=== PATIENT | female | born 1995 | race Caucasian/White ===

== ENCOUNTER 2021-06-21 15:21 | Outpatient (REF) | payer OTHER, SELFPAY ==
[2021-06-22 08:56] LABS: Monotest Negative (Negative)
[2021-06-24 01:56] LABS: EBV-VCA IgM Ab <36.00 U/mL
== END 2021-06-21 15:22 | disposition home or self-care (01) ==
LOC: HO.MANLDS 15:21
PROVIDERS: PCP Physician Assistant; Visit Provider Physician Assistant
DX: R06.00 Dyspnea, unspecified (principal)
CPT/HCPCS: 36415; 86308; 86664; 86665

== ENCOUNTER → 2024-05-08 09:17 | Outpatient (BNVA) | payer OTHER, SELFPAY | PROVIDERS: PCP Physician Assistant; Visit Provider Physician Assistant | DX: Z77.21 Contact with and (suspected) exposure to potentially hazardous body fluids (principal) | CPT/HCPCS: 84450; 84460; 84702; 85025; 86706; 86803; 87389; 90715; 99204 ==

== ENCOUNTER → 2024-05-11 09:14 | Outpatient (BNVA) | payer OTHER, SELFPAY | PROVIDERS: PCP Physician Assistant; Visit Provider Registered Nurse | DX: Z77.21 Contact with and (suspected) exposure to potentially hazardous body fluids (principal) | CPT/HCPCS: 99213 ==

== ENCOUNTER → 2024-05-26 09:10 | Outpatient (BNVA) | payer OTHER, SELFPAY | PROVIDERS: PCP Physician Assistant; Visit Provider Physician Assistant Medical | DX: Z77.21 Contact with and (suspected) exposure to potentially hazardous body fluids (principal) | CPT/HCPCS: 82150; 82565; 84450; 84460; 85025; 99213 ==

== ENCOUNTER → 2024-06-08 08:27 | Outpatient (BNVA) | payer OTHER, SELFPAY | PROVIDERS: PCP Physician Assistant | DX: Z77.21 Contact with and (suspected) exposure to potentially hazardous body fluids (principal) | CPT/HCPCS: 82150; 82565; 84450; 84460; 85025 ==

== ENCOUNTER → 2024-06-19 08:27 | Outpatient (BNVA) | payer OTHER, SELFPAY | PROVIDERS: PCP Physician Assistant | DX: Z77.21 Contact with and (suspected) exposure to potentially hazardous body fluids (principal) | CPT/HCPCS: 84450; 84460; 86706; 87389; 99211 ==

== ENCOUNTER → 2024-08-07 08:47 | Outpatient (BNVA) | payer OTHER, SELFPAY | PROVIDERS: PCP Physician Assistant | DX: Z77.21 Contact with and (suspected) exposure to potentially hazardous body fluids (principal) | CPT/HCPCS: 84450; 84460; 86803; 87389; 99211 ==

== ENCOUNTER 2025-06-23 14:53 | Outpatient (AMB) | payer OTHER, SELFPAY ==
[2025-06-23 14:59] VITALS: BP 118/82; PULSE 69; O2SAT 99
--- NOTE | 2025-06-23 14:59 | A.OFFPC_ITS ---
Vital Signs 06/23/25 14:59 Height 5 ft 6.5 in Weight 189 lb BMI 30.0 BP 118/82 Blood Pressure Location Lt brachial Position Sitting Pulse 69 Pulse Source Pulse Oximeter Pulse Oximetry (%) 99 Oxygen Delivery Method Room Air Intake Visit Reasons: establish care Insights Manager Required: No Accompanied by: Self / Same As Patient Is last menstrual period known: Yes Last menstrual period: 06/13/25 Patient : No Allergies No Known Allergies Allergy (Verified 06/23/25 15:21) Medication List - Last Reconciled 06/23/25 by Barb George PA-C ascorbate calcium (vitamin C) 500 mg PO DAILY duloxetine 60 mg PO DAILY ferrous gluconate 648 mg PO BID lorazepam 0.5 mg PO DAILY PRN methylphenidate HCl ER (Concerta) 36 mg PO DAILY multivitamin (Daily Multi-Vitamin tablet) 1 tab PO DAILY omeprazole 20 mg PO DAILY Tobacco use date assessed: 06/23/25 Dental Screening Dental Screen Date: 06/23/25 Did you have a dental visit in the last 12 months?: Yes Did you have a dental problem in the last 6 months where you did not have access to dental care?: No Was dental information given to patient?: Patient has dentist HPI establish care HPI Details 30 year old female coming to the office for the first time. Presenting for management of ADHD, depression, and anxiety, as well as follow-up on iron deficiency anemia and GERD. ADHD Previously managed with Concerta 36 mg, which she has not taken for a while, resulting in worsening symptoms. Difficulty obtaining medical records from [facility], which has closed. For depression and anxiety she is on duloxetine with varying effectiveness requiring dosage adjustments. She has been working on finding a psychiatrist and therapist but has been unable to obtain 1. She has a history of iron-deficiency anemia and is currently taking iron and vitamin-C supplementation. She has history of GERD with hiatal hernia is using omeprazole with good benefit. She does experience irregular menstrual cycles which slightly improved after a beef organ supplement was implemented and she has completed a pelvic and transvaginal ultrasound in the last year. No acute concerns today. 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 vaccines: Tdap [facility] Surgical History H/O adenoidectomy History of placement of ear tubes Family History Other Diabetes 1.5, managed as type 1 Temporary high blood pressure Social History Household Members: Spouse Both parents involved: No Housing: House Are you a primary career development consultant to a significant other at home: No Do you presently have visiting nurse or other home services: No Alcohol intake: former Patient Tobacco Use Status: Never used Tobacco e-Cigarette/Vaping Use: Currently Using Substance Use Type: Marijuana service: No Current occupational status: employed Current occupation: [employer] Hearing needs: No Vision needs: No Female Reproductive History Menstrual Duration of menses: 6-7 days Date of last menstrual period: 06/13/25 control method: none Total pregnancies: 0 Questionnaire PHQ-9 Over the last 2 weeks, how often have you been bothered by any of the following problems? 1. Little interest or pleasure in doing things: nearly every day 2. Feeling down, depressed, or hopeless: nearly every day 3. Trouble falling or staying asleep, or sleeping too much: nearly every day 4. Feeling tired or having little energy: nearly every day 5. Poor appetite or overeating: nearly every day 6. Feeling bad about yourself - or that you are a failure or have let yourself or your family down: several days 7. Trouble concentrating on things, such as reading the newspaper or watching television: nearly every day 8. Moving or speaking so slowly that other people could have noticed. Or the opposite - being so fidgety or restless that you have been moving around a lot more than usual: nearly every day 9. Thoughts that you would be better off or of hurting yourself in some way: not at all Total score: 22 Depression Screening Interpretation: Positive Depression Screening Follow-up: Existing condition and In treatment Depression Screening Done: Yes 92702 - PHQ-9 Billing: Yes Source: Developed by Drs. Markell Chang, Diana Solano, Isidro Dockery and colleagues, with an educational hanna from [employer]. Thrive Questionnaire Date Thrive assessed: 06/23/25 I am a: Patient What is your living situation today?: I have a steady place to live Within the past 12 months, did the food you bought not last and you didn't have the money to get more?: I choose not to answer this question Within the past 12 months, did you worry whether your food would run out before you got money to buy more?: I choose not to answer this question Do you have trouble paying for medicines?: I choose not to answer this question Do you have trouble getting transportation to medical appointments?: I choose not to answer this question Do you have trouble paying your heating and electricity bill?: I choose not to answer this question Do you have trouble taking care of your child, family member or friend?: I choose not to answer this question Do you have trouble with day-to-day activities such as bathing, preparing meals, shopping, managing finances, etc.?: I choose not to answer this question Are you currently unemployed and looking for a job?: No Are you interested in more education?: I choose not to answer this question Please select the resources that you would like help with: None Currently or been in a relationship where the following occur: I choose not to answer THRIVE Score: 0 AUDIT C Alcohol Use Questionnaire (AUDIT-C) 1. How often do you have a drink containing alcohol?: 2-4 times a month 2. How many drinks containing alcohol do you have on a typical day when you are drinking?: 1 or 2 3. How often do you have six or more drinks on one occasion?: Less than monthly Total Score: 3 Score Reviewed/Action Taken: Yes CASTILLO-7 AMB Questionnaire CASTILLO-7 Date CASTILLO - 7 assessed: 06/23/25 Feeling nervous, anxious, or on edge: 3 = Nearly every day Not being able to stop or control worryin = Not at all Worrying too much about different things: 1 = Several days Trouble relaxin = More than half the days Being so restless that it is hard to sit still: 1 = Several days Becoming easily annoyed or irritable: 1 = Several days Feeling afraid as if something awful might happen: 0 = Not at all Total CASTILLO-7 score (0-4 normal; 5-9 mild; 10-14 moderate; 15-21 severe): 8 Source: Developed by Drs. Markell Chang, Isidro Ricardoke and colleagues, with an educational hanna from [employer]. CASTILLO-7 Assessment Billing CASTILLO-7 Assessment Tool: CASTILLO-7 Assessment 43115 Review of Systems Const Denies body aches, Denies chills, Denies fever(s), Denies headache(s) and Denies poor appetite Eyes Reports no additional complaints ENT Denies dysphagia, Denies dizziness, Denies headache(s) and Denies odynophagia Card Denies chest pain and Denies dyspnea Resp Denies dyspnea GI Denies dysphagia, Denies nausea, Denies odynophagia and Denies vomiting Reports as per HPI Musc Reports no additional complaints and Denies abnormal gait Skin/Breast Reports system reviewed and no additional complaints, except as documented Neuro Denies abnormal gait, Denies dizziness and Denies headache(s) Psych Reports no additional complaints Physical exam (Primary Care) Vital Signs: Last Vital Signs Pulse 69 06/23/25 14:59 BP 118/82 06/23/25 14:59 Pulse Ox 99 06/23/25 14:59 Oxygen Delivery Method Room Air 06/23/25 14:59 BMI result Body Mass Index 30.0 Tobacco/Smoking Status: Tobacco use Status Tobacco use date assessed 06/23/25 06/23/25 15:17 Patient Tobacco Use Status Never used Tobacco 06/23/25 15:17 e-Cigarette/Vaping Use Currently Using 06/23/25 15:17 PHQ-9: PHQ-9 Score PHQ-9: Total score 22 06/23/25 15:17 Depression Screening Interpretation: Positive Depression Screening Follow-up: Existing condition and In treatment Thrive Assessment: Date of Thrive Assessment Date Thrive assessed 06/23/25 06/23/25 15:17 Currently or been in a relationship where the following occur: I choose not to answer Const General: cooperative, healthy appearing, comfortable and no acute distress Orientation/consciousness: patient oriented x3 HENMT Head: Yes normocephalic Ears: hearing grossly normal bilaterally General nose exam: Normal external nose present Eyes General: appearance normal, both eyes and all related structures Conjunctivae: conjunctivae normal Neck Neck: Yes full ROM and Yes no lymphadenopathy Resp Effort & Inspection: normal respiratory effort Auscultation: clear to auscultation bilaterally, no crackles, no rales, no rhonchi and no wheezes Cardio Rate: regular rate Rhythm: regular rhythm Skin General skin exam: no rashes or lesions noted Neuro General: patient oriented x3 Gait exam (Neuro): Normal gait present Extrem General: Yes normal to inspection, Yes full ROM and No edema Psych Affect: normal affect Attitude: cooperative Insight: Good insight present (Psych) Judgement: Good judgement present (Psych) Coding Level of Care Code New Pt Level 4 (98756) Diagnoses Depression F32.A Anxiety F41.9 GERD (gastroesophageal reflux disease) K21.9 ADHD F90.9 Iron deficiency anemia D50.9 Hiatal hernia K44.9 Obesity (BMI 30.0-34.9) E66.811 Irregular menses N92.6 Additional Codes PHQ-9 - 45184 - PHQ-9 Billing: Yes ([id number]) CASTILLO-7 Assessment Billing - CASTILLO-7 Assessment Tool: CASTILLO-7 Assessment 19214 ([id number]) Assessment & Plan Assessment & Plan (1) Depression: Code(s): F32.A - Depression, unspecified Category: Medical Plan: Patient is currently on duloxetine which he states is more effective in conjunc tion with Concerta. Plan to restart on Concerta and reassess at that time. Referral was also placed to counseling and psychiatry (2) Anxiety: Code(s): F41.9 - Anxiety disorder, unspecified Category: Medical Plan: See above (3) GERD (gastroesophageal reflux disease): Code(s): K21.9 - Gastro-esophageal reflux disease without esophagitis Category: Medical Plan: Avoid trigger foods such as citrus, tomato products, soda, caffeine, spicy foods and other foods that may be irritating to your stomach. Avoid laying flat 3-4 hours after eating and elevate the head of the bed 30 degrees to prevent acid from moving into the esophagus. Continue on omeprazole (4) ADHD: Code(s): F90.9 - Attention-deficit hyperactivity disorder, unspecified type Category: Medical Plan: Plan to restart on Concerta I did discuss with the patient while she is on this medication she needs to follow up every 3 months at the office. (5) Iron deficiency anemia: Code(s): D50.9 - Iron deficiency anemia, unspecified Category: Medical Plan: Plan to ordered for updated blood work and continue on vitamin-C and iron supplementation at this time (6) Hiatal hernia: Code(s): K44.9 - Diaphragmatic hernia without obstruction or gangrene Category: Medical Plan: Avoid trigger foods such as citrus, tomato products, soda, caffeine, spicy foods and other foods that may be irritating to your stomach. Avoid laying flat 3-4 hours after eating and elevate the head of the bed 30 degrees to prevent acid from moving into the esophagus. (7) Obesity (BMI 30.0-34.9): Code(s): E66.811 - Obesity, class 1 Category: Medical Plan: Healthy diet and regular exercise is encouraged. (8) Irregular menses: Code(s): N92.6 - Irregular menstruation, unspecified Category: Medical Plan: Plan to obtain the results from the pelvic and transvaginal ultrasound completed less than a year ago and referral was placed to gynecology today. Plan During the visit, we discussed the management of ADHD with Eze and the continuation of duloxetine for depression and anxiety. I recommended referrals to psychiatry and gynecology for comprehensive management of mental health and menstrual irregularities. We also planned for fasting blood work to monitor iron levels and other health parameters. Dietary modifications were suggested to caroline ge GERD and weight. Follow-up is scheduled in three months to reassess the treatment plan and make necessary adjustments. This note was constructed using voice recognition software. 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 Total time spent caring for the patient today was 30 minutes. This includes time spent before the visit reviewing the chart, time spent during the visit, and time spent after the visit and documentation. Patient was informed and verbally consented to the use of an ambient scribe for clinic note documentation during this visit.
--- OUTSIDE RECORDS SUMMARY | 2025-06-23 16:17 | XMS_ITS | Clinical Summary ---
Author Organization [facility] Address [address] [place] [id number] Phone Care Team Providers Care Marketing Campaign Analyst Name Role Phone Pcp, Unknown Primary Care Provider Unavailabl e Immunizations Immunization Administration Dates Next Due COVID-19 (Pre-08/19) Pfizer Vaccine, mRNA, PF ,03/04/2021 Social History Tobacco Use Types Packs/Day Years Used Date Smoking Tobacco: Never Assessed Education Answer Date Recorded Are you interested in more education? Not on melania e 02/22/2023 Are you concerned about learning? Not on file 02/22/2023 No 02/22/2023 No 02/22/2023 Digital Access Answer Date Recorded No 03/22/2023 No 03/22/2023 No 03/22/2023 Reliable internet access at home? Not on file 03/22/2023 Device with a working camera? Not on file Comments Unknown Sex and Gender Information Value Date Recorded Sex Assigned at Not on file Legal Sex Female 8:52 PM EDT Gender Identity Female 06/19/2021 4:14 PM EDT Sexual Orientation Not on file Plan of Treatment Health Maintenance Due Date Last Done Comments DEPRESSION SCREENING 2007 SMOKING Hx and SMOKELESS TOBACCO SCREENING 2008 HEPATITIS C SCREENING 2013 HIV ONE-TIME SCREENING (18-65 YEARS) 2013 PAP SMEAR 2016 Adult Td,Tdap Booster 05/31/2018 05/31/2008 COVID-19 VACCINE ( season) 2024 03/30/2021, 03/04/2021 HIB VACCINES Completed 10/16/1996, 12/27, 1995, Additional history exists MENINGOCOCCAL VACCINES (ACWY) Aged Out 08/25/2009, 05/31/2008 No longer eligibl e based on patient's age to complete this topic HEPATITIS A VACCINES Aged Out No long er eligible based on patient's age to complete this topic MENINGOCOCCAL VACCINES (B) Aged Out N o longer eligible based on patient's age to complete this topic PNEUMOCOCCAL VACCINES (0-49 years) Aged Out No longer eligible based on patient's age to complete this topic Medical Devices Not on file Insurance [employer] [facility] [employer] [address] [place], [place] [address] [facility] [employer] [place] [address] [address] [place] [address] [place] [address] [place] [address] [place] [address] [facility] [facility] CHOICE [facility] CHOICE Care Teams Marketing Campaign Analyst Relationship Specialty Start Date End Date Pcp, Unknown PCP - General 03/01/21 Additional Source Comments The information contained in this document represents components of the legal health record. It is not the complete legal health record.[facility]
--- OUTSIDE RECORDS SUMMARY | 2025-06-23 16:17 | XMS_ITS | Encounter Summary ---
Author Organization [facility] Address [address] [place] [phone] Phone Care Team Providers Care Account Services Coordinator Name Role Phone Pcp, Unknown Primary Care Provider Unavailabl e Encounter Details Date Type Department Care Team (Latest Contact Info) Description 06/19/2021 Transcribe Orders Virtual Department [address] [place] [id number] Sun Jaquez PA [address] [place] [address] [place] [address] Cough (Primary Dx); Shortness of breath; Sore throat Social History Tobacco Use Types Packs/Day Years Used Date Smoking Tobacco: Never Assessed Comments Unknown Sex and Gender Information Value Date Recorded Sex Assigned at Not on file Legal Sex Female 8:52 PM EDT Gender Identity Female 06/19/2021 4:14 PM EDT Sexual Orientation Not on file documented as of this encounter Plan of Treatment Not on file documented as of this encounter Results * COVID-19 PCR Order (06/20/2021 1:40 PM EDT) COVID Testing Status Specimen received in analyzing lab. Results should be available within 24 to 48 hrs. [facility] Symptomatic? YES [facility] Other (Nasal swab) 06/20/2021 1:40 PM EDT 06/20/2021 5:57 PM EDT Sun [facility] STOOL[facility] JORJE DC Final Result [address] [address] [facility] [address] [place] [id number] documented in this encounter Visit Diagnoses Diagnosis Cough- Primary Shortness of breath Sore throat Acute pharyngitis documented in this encounter Additional Health Concerns Infection Onset Date Last Indicated Resolved Time CoV-Risk 06/19/2021 06/20/2021 06/29/2021 1:23 AM EDT documented as of this encounter Care Teams Account Services Coordinator Relationship Specialty Start Date End Date Pcp, Unknown PCP - General 03/01/21 documented as of this encounter Additional Source Comments The information contained in this document represents components of the legal health record. It is not the complete legal health record.[facility]
== END 2025-06-23 16:00 | disposition home or self-care (01) ==
DX: K21.9 Gastro-esophageal reflux disease without esophagitis (principal); F32.A Depression, unspecified; E66.811 Obesity, class 1; Z68.30 Body mass index [BMI] 30.0-30.9, adult; F41.9 Anxiety disorder, unspecified; F90.9 Attention-deficit hyperactivity disorder, unspecified type; D50.9 Iron deficiency anemia, unspecified; K44.9 Diaphragmatic hernia without obstruction or gangrene; N92.6 Irregular menstruation, unspecified

== ENCOUNTER → 2025-06-23 14:53 | Outpatient (BNVA) | payer OTHER, SELFPAY | PROVIDERS: PCP Physician Assistant | DX: K21.9 Gastro-esophageal reflux disease without esophagitis (principal); F90.9 Attention-deficit hyperactivity disorder, unspecified type; F41.9 Anxiety disorder, unspecified; D50.9 Iron deficiency anemia, unspecified; F32.A Depression, unspecified; K44.9 Diaphragmatic hernia without obstruction or gangrene; N92.6 Irregular menstruation, unspecified; E66.811 Obesity, class 1; Z68.30 Body mass index [BMI] 30.0-30.9, adult | CPT/HCPCS: 96127 ==

== ENCOUNTER 2025-09-14 06:51 | Outpatient (REF) | payer OTHER, SELFPAY ==
[2025-09-14 07:05] LABS: MANUAL DIFF FLAG NO
[2025-09-14 07:24] LABS: Hematocrit 43.7 % (37.0-47.0); Hemoglobin 14.6 g/dl (12.0-16.0); Imm Gran Abs Auto 0.01 X10*3/uL (0.00-0.03); Imm Gran Pct Auto 0.2 % (0.0-0.4); Lymphocytes Absolute Auto 2.0 X10*3/uL (1.2-4.9); Mean Corpuscular HGB Conc 33.4 g/dl (31.0-35.0); Mean Corpuscular Hemoglobin 29.6 pg (27.0-33.0); Mean Corpuscular Volume 88.6 fL (80.0-98.0); NRBC Abs Auto 0.000 X10*3/uL (0.0-0.012); NRBC Pct Auto 0.0 /100WBC (0.0-0.2); Platelet Count 263 X10*3/uL (160-400); Red Blood Count 4.93 X10*6/uL (4.20-5.50); White Blood Count 4.7 X10*3/uL (4.8-10.8)
[2025-09-14 07:57] LABS: Alanine Aminotransferase 38 U/L (0-31); Albumin Level 4.9 g/dL (3.5-5.0); Alkaline Phosphatase 71 U/L (39-117); Anion Gap 14 (12-20); Aspartate Amino Transferase 45 U/L (5-31); Blood Urea Nitrogen 13 mg/dL (9-16); Calcium 9.7 mg/dL (8.4-10.2); Carbon Dioxide 23 mmol/L (22-29); Chloride 108 mmol/L (96-108); Cholesterol 246 mg/dL (<200); Estimated Glomerular Filt Rate > 60; HDL Cholesterol 59 mg/dL (>40); Iron 109 mcg/dL (30-160); Percent Iron Saturation 34 % (15-50); Potassium 4.4 mmol/L (3.3-5.1); Sodium 141 mmol/L (135-145); Total Iron Binding Capacity 318 mcg/dL (228-428); Total Protein 7.8 g/dL (6.5-8.0); Triglycerides 122 mg/dL (<150); Unsaturated Iron Binding 209 ug/dL
[2025-09-14 08:32] LABS: Folate 13.7 ng/mL (> or = 4.0); Vitamin B12 1196 pg/mL (200-900)
== END 2025-09-14 06:52 | disposition home or self-care (01) ==
LOC: HO.LAB 06:51
DX: Z00.00 Encounter for general adult medical examination without abnormal findings (principal); K21.9 Gastro-esophageal reflux disease without esophagitis; Z13.21 Encounter for screening for nutritional disorder; Z13.220 Encounter for screening for lipoid disorders; D50.9 Iron deficiency anemia, unspecified; Z13.29 Encounter for screening for other suspected endocrine disorder; Z13.6 Encounter for screening for cardiovascular disorders
CPT/HCPCS: 36415; 80053; 80061; 82306; 82607; 82746; 83540; 84443; 85025

== ENCOUNTER 2025-09-20 08:29 | Outpatient (AMB) | payer OTHER, SELFPAY ==
[2025-09-20 08:35] VITALS: BP 126/100; PULSE 97; TEMP 36.7; O2SAT 99; BMI 29.6
--- NOTE | 2025-09-20 08:35 | A.OFFPC_ITS ---
Vital Signs 09/20/25 08:35 Height 5 ft 6.5 in Weight 186 lb BMI 29.6 BP 126/100 H Blood Pressure Location Lt brachial Position Sitting Pulse 97 Pulse Source Pulse Oximeter Temp 98.1 F Temp Source Temporal Artery Scan Pulse Oximetry (%) 99 Oxygen Delivery Method Room Air Intake Visit Reasons: annual exam Intake Note: Pt request flu shot Specialty Cook Required: No Accompanied by: Self / Same As Patient Is last menstrual period known: Yes Last menstrual period: 06/13/25 Patient : No Allergies No Known Allergies Allergy (Verified 09/20/25 08:36) Medication List - Last Reconciled 09/20/25 by Barb George PA-C ascorbate calcium (vitamin C) 500 mg PO DAILY ferrous gluconate 324 mg PO DAILY lorazepam 0.5 mg PO DAILY PRN methylphenidate HCl ER (Concerta) 36 mg PO DAILY multivitamin (Daily Multi-Vitamin tablet) 1 tab PO DAILY omeprazole 20 mg PO DAILY Tobacco use date assessed: 06/23/25 Dental Screening Dental Screen Date: 06/23/25 Did you have a dental visit in the last 12 months?: Yes Did you have a dental problem in the last 6 months where you did not have access to dental care?: No Was dental information given to patient?: Patient has dentist HPI annual exam HPI Details 30 year old female with past medical his tory of depression, ADHD, GERD, anxiety last seen 05/2025 coming in for annual exam. Presenting for review of lab results and discussion of a new skin condition. The patient was concerned about a recent fasting lab result showing an LDL cholesterol of 163 mg/dL, which the patient felt was elevated compared to her last labs. The patient reports making significant dietary changes over the last couple of months, including cutting back on red meats, egg yolks, fried foods, and pastries. There is a family history of high cholesterol. The patient reports developing a rash around the eyes when exposed to cold weather. The rash becomes red, raw, scaly, itchy, and melendez badly. This is a recurrent issue that the patient also experienced when younger, previously developing hives all over the face in the cold. The symptoms improve when the patient gets warm, but the area can remain swollen. The patient has tried applying Aquaphor at night. The patient reports that their hands are always cold, and the fingertips turn a light bluish or purple color, similar to a bruise. pap smear: overdue referral placed environmental safety specialist today vaccines: Tdap UTD [facility] Surgical History H/O adenoidectomy History of placement of ear tubes Family History Other Diabetes 1.5, managed as type 1 Temporary high blood pressure Social History Household Members: Spouse Both parents involved: No Housing: House Are you a primary live in caregiver to a significant other at home: No Do you presently have visiting nurse or other home services: No Alcohol intake: former Patient Tobacco Use Status: Never used Tobacco e-Cigarette/Vaping Use: Currently Using Substance Use Type: Marijuana service: No Current occupational status: employed Current occupation: [employer] Hearing needs: No Vision needs: No Female Reproductive History Menstrual Date of last menstrual period: 06/13/25 Questionnaire PHQ-9 Over the last 2 weeks, how often have you been bothered by any of the following problems? 1. Little interest or pleasure in doing things: nearly every day 2. Feeling down, depressed, or hopeless: nearly every day 3. Trouble falling or staying asleep, or sleeping too much: nearly every day 4. Feeling tired or having little energy: nearly every day 5. Poor appetite or overeating: nearly every day 6. Feeling bad about yourself - or that you are a failure or have let yourself or your family down: several days 7. Trouble concentrating on things, such as reading the newspaper or watching television: nearly every day 8. Moving or speaking so slowly that other people could have noticed. Or the opposite - being so fidgety or restless that you have been moving around a lot more than usual: nearly every day 9. Thoughts that you would be better off or of hurting yourself in some way: not at all Total score: 22 Depression Screening Interpretation: Positive Depression Screening Follow-up: Existing condition and In treatment Depression Screening Done: Yes 82097 - PHQ-9 Billing: Yes Source: Developed by Drs. Markell L. CharleneDiana tobin, Isidro Dockery and colleagues, with an educational hanna from [employer]. Thrive Questionnaire Date Thrive assessed: 06/19/25 I am a: Patient What is your living situation today?: I have a steady place to live Within the past 12 months, did the food you bought not last and you didn't have the money to get more?: I choose not to answer this question Within the past 12 months, did you worry whether your food would run out before you got money to buy more?: I choose not to answer this question Do you have trouble paying for medicines?: I choose not to answer this question Do you have trouble getting transportation to medical appointments?: I choose not to answer this question Do you have trouble paying your heating and electricity bill?: I choose not to answer this question Do you have trouble taking care of your child, family member or friend?: I choose not to answer this question Do you have trouble with day-to-day activities such as bathing, preparing meals, shopping, managing finances, etc.?: I choose not to answer this question Are you currently unemployed and looking for a job?: No Are you interested in more education?: I choose not to answer this question Please select the resources that you would like help with: None Currently or been in a relationship where the following occur: I choose not to answer THRIVE Score: 0 AUDIT C Alcohol Use Questionnaire (AUDIT-C) 1. How often do you have a drink containing alcohol?: 2-4 times a month 2. How many drinks containing alcohol do you have on a typical day when you are drinking?: 1 or 2 3. How often do you have six or more drinks on one occasion?: Less than monthly Total Score: 3 Score Reviewed/Action Taken: Yes CASTILLO-7 AMB Questionnaire CASTILLO-7 Date CASTILLO - 7 assessed: 06/23/25 Feeling nervous, anxious, or on edge: 3 = Nearly every day Not being able to stop or control worryin = Not at all Worrying too much about different things: 1 = Several days Trouble relaxin = More than half the days Being so restless that it is hard to sit still: 1 = Several days Becoming easily annoyed or irritable: 1 = Several days Feeling afraid as if something awful might happen: 0 = Not at all Total CASTILLO-7 score (0-4 normal; 5-9 mild; 10-14 moderate; 15-21 severe): 8 Source: Developed by Drs. Makrell Chang, Diana Solano, Isidro Dockery and colleagues, with an educational hanna from [employer]. CASTILLO-7 Assessment Billing CASTILLO-7 Assessment Tool: CASTILLO-7 Assessment 74814 Review of Systems Const Denies body aches, Denies chills, Denies fever(s), Denies headache(s) and Denies poor appetite Eyes Reports no additional complaints ENT Denies dysphagia, Denies dizziness, Denies headache(s) and Denies odynophagia Card Denies chest pain, Denies syncope, Denies edema, Denies irregular heart rhythm, Denies lightheadedness and Denies dyspnea Resp Denies cough and Denies dyspnea GI Denies abdominal pain, Denies constipation, Denies dysphagia, Denies diarrhea, Denies nausea, Denies odynophagia and Denies vomiting Reports no additional complaints Musc Reports as per HPI and Denies abnormal gait Skin/Breast Reports as per HPI Neuro Denies abnormal gait, Denies dizziness, Denies syncope and Denies headache(s) Psych Reports no additional complaints Physical exam (Primary Care) Vital Signs: Last Vital Signs Temp 98.1 F 09/20/25 08:35 Pulse 97 09/20/25 08:35 BP 126/100 H 09/20/25 08:35 Pulse Ox 99 09/20/25 08:35 Oxygen Delivery Method Room Air 09/20/25 08:35 BMI result Body Mass Index 29.6 Tobacco/Smoking Status: Tobacco use Status Tobacco use date assessed 06/23/25 09/20/25 08:38 Patient Tobacco Use Status Never used Tobacco 09/20/25 08:38 e-Cigarette/Vaping Use Currently Using 09/20/25 08:38 PHQ-9: PHQ-9 Score PHQ-9: Total score 22 09/20/25 09:35 Depression Screening Interpretation: Positive Depression Screening Follow-up: Existing condition and In treatment Thrive Assessment: Date of Thrive Assessment Date Thrive assessed 06/19/25 09/20/25 08:38 Currently or been in a relationship where the following occur: I choose not to answer Const General: cooperative, healthy appearing, comfortable and no acute distress Orientation/consciousness: patient oriented x3 HENMT Head: Yes normocephalic Ears: hearing grossly normal bilaterally, external ears normal, TM's normal bilaterally and EAC's normal General nose exam: Normal external nose present Face and sinus: Yes normal facial exam and Yes sinuses nontender Mouth: Normal oral and palatal mucosa present and tongue normal Throat: Yes posterior oropharynx normal Eyes General: appearance normal, both eyes and all related structures Conjunctivae: conjunctivae normal Pupils: Equal, round and reactive pupils present EOM: EOMs intact bilaterally and No Nystagmus present Neck Neck: Yes normal visual inspection, Yes full ROM and Yes no lymphadenopathy Chest Chest palpation & inspection: normal inspection of the chest Resp Effort & Inspection: normal respiratory effort Auscultation: clear to auscultation bilaterally, no crackles, no rales, no rhonchi, no wheezes and breath sounds present Cardio Rate: regular rate Rhythm: regular rhythm Peripheral pulses: radial pulses present and dorsalis pedis present GI Inspection: Yes normal to inspection and No Abdominal wall edema Palpation (GI): Soft to palpation, not firm and nontender Auscultation: normal bowel sounds Rectal Exam - Female: deferred General: Yes no CVA tenderness Back/Spine/Pelvis Back: no CVA tenderness Skin General skin exam: no rashes or lesions noted Neuro General: patient oriented x3 Cranial nerves: Yes Equal, round and reactive pupils present, Yes Midline tongue present, Yes Ability to bilaterally elevate shoulders present and No Nystagmus present Gait exam (Neuro): Normal gait present Extrem General: Yes normal to inspection, Yes full ROM, No no pedal edema and No edema Psych Speech and movement: Normal speech and movement present Affect: normal affect Insight: Good insight present (Psych) Judgement: Good judgement present (Psych) Office Procedures Flu Questionnaire Does the patient have a severe egg allergy?: No Does the patient have severe life threatening allergies?: No Does the patient have a fever or illness today?: No Has the patient ever had Guillain-Maple Syndrome?: No Has the patient ever had any past reaction to a flu shot?: No Immunizations Fluarix [id number] (PF) 45 mcg (15 mcg x 3)/0.5 mL IM syringe Performing Provider: Barb George PA-C Performing Location: [facility] Administered by: Linda Fulton CMA on 09/20/25 09:35 Dose Route Admin Location Dispensed Lot Number Expiration Date NDC Data Communications Technician 0.5 mL IM Left Deltoid 0.5 mL [id number] 04/26/26 [id number] [employer] VIS Given Date VIS Provided VIS Publication Date 09/20/25 Single Vaccine 24 Eligibility Eligibility Date Funding Source Not [facility] Eligible 09/20/25 Private Coding Level of Care Code Est Pt Prev Care 18-39y(86496) Diagnoses Annual physical exam Z00.00 Depression F32.A ADHD F90.9 Anxiety F41.9 Obesity (BMI 30.0-34.9) E66.811 GERD (gastroesophageal reflux disease) K21.9 Iron deficiency anemia D50.9 Hypercholesteremia E78.00 Elevated LFTs R79.89 Eczema L30.9 Cold hands and feet R20.9 Additional Codes CASTILLO-7 Assessment Billing - CASTILLO-7 Assessment Tool: CASTILLO-7 Assessment 97476 ([id number]) PHQ-9 - 45857 - PHQ-9 Billing: Yes ([id number]) Assessment & Plan Assessment & Plan (1) Annual physical exam: Code(s): Z00.00 - Encounter for general adult medical examination without abnormal findings Category: Medical Plan: Patient is due to pap smear and reminded about referral today. She is up to date on all recommended vaccines for her age and was given the flu shot today. She is up to date on blood work and has been reviewed today. Healthy diet and regular exercise is encouraged. (2) Depression: Code(s): F32.A - Depression, unspecified Category: Medical Plan: Depression is well managed at this time and is working on getting established with psych. (3) ADHD: Code(s): F90.9 - Attention-deficit hyperactivity disorder, unspecified type Category: Medical Plan: Restarted on Concerta at last visit feels it has been mildly beneficial but is considering a dose increase. (4) Anxiety: Code(s): F41.9 - Anxiety disorder, unspecified Category: Medical Plan: See above (5) Obesity (BMI 30.0-34.9): Code(s): E66.811 - Obesity, class 1 Category: Medical Plan: Healthy diet and regular exercise is encouraged. (6) GERD (gastroesophageal reflux disease): Code(s): K21.9 - Gastro-esophageal reflux disease without esophagitis Category: Medical Plan: Avoid trigger foods such as citrus, tomato products, soda, caffeine, spicy foods and other foods that may be irritating to your stomach. Avoid laying flat 3-4 hours after eating and elevate the head of the bed 30 degrees to prevent acid from moving into the esophagus. Continue on omeprazole (7) Iron deficiency anemia: Code(s): D50.9 - Iron deficiency anemia, unspecified Category: Medical Plan: Iron levels and Hgb normal on last blood work. (8) Hypercholesteremia: Code(s): E78.00 - Pure hypercholesterolemia, unspecified Category: Medical Plan: Avoid foods that are high in cholesterol such as red meat, fried foods, eggs and baked goods. Triglyceride goal of less than 150 and LDL goal of less than 130. Given the patient's young age and recent implementation of diet and exercise changes over the past 2-3 months, medication will be deferred. A repeat fasting lipid panel will be ordered in three months to allow sufficient time to assess the impact of these lifestyle modifications, as LDL levels do not change qu ickly. (9) Elevated LFTs: Code(s): R79.89 - Other specified abnormal findings of blood chemistry Category: Medical Plan: The patient has elevated liver enzymes, which may be a consequence of weight or fatty liver disease, often associated with hyperlipidemia. A repeat liver function test and a hepatitis panel will be ordered to rule out acute inflammation or infection, particularly given a history of a needlestick injury. If the liver tests continue to be elevated, an ultrasound of the liver will be considered. (10) Eczema: Code(s): L30.9 - Dermatitis, unspecified Category: Medical Plan: The patient experiences a facial rash around the eyes that appears to be triggered by cold exposure, with symptoms of redness, burning, itching, and scaling, suggestive of eczema or cold-induced urticaria. The patient is advised to continue using Aquaphor and to try an [id number] allergy pill for one week, as allergies can be a trigger for eczema. A referral will be placed with [facility] for further evaluation. (11) Cold hands and feet: Code(s): R20.9 - Unspecified disturbances of skin sensation Category: Medical Plan: The patient reports symptoms consistent with Raynaud's phenomenon, including constantly cold hands with fingertips that turn a light bluish or purple color. To investigate for associated autoimmune conditions, a scleroderma antibody panel will be ordered with the upcoming blood work. The patient was educated that treatment often involves lifestyle measures like wearing gloves, as medications are typically blood pressure drugs and would not be a first-line choice. Plan This note was constructed using voice recognition software. While every effort has been made to ensure accuracy and vehicle return associate, still areas may have been included sometimes these areas may affect the content or meeting of the given symptoms. Total time spent caring for the patient today was 30 minutes. This includes time spent before the visit reviewing the chart, time spent during the visit, and time spent after the visit and documentation. Patient was informed and verbally consented to the use of an ambient scribe for clinic note documentation during this visit. Orders: Orders ESDRAS Reflex Titer and Pattern Today R20.9 - Unspecified disturbances of skin sensation Lipid Panel 3 Months E78.00 - Pure hypercholesterolemia, unspecified Anti-Centromere B Antibodies Today R20.9 - Unspecified disturbances of skin sensation Influenza [id number] Immunization Today Z23 - Encounter for immunization Referrals Dermatology Referral L30.9 - Dermatitis, unspecified
--- OUTSIDE RECORDS SUMMARY | 2025-09-20 08:42 | XMS_ITS | Encounter Summary ---
Author Organization [facility] Address [address] [place] [id number] Phone Care Team Providers Care Sales And Support Center Agent Name Role Phone Pcp, Unknown Primary Care Provider Unavailabl e Encounter Details Date Type Department Care Team (Latest Contact Info) Description 06/19/2021 Transcribe Orders Virtual Department [address] [place] [id number] Sun Jaquez PA [address] [place] [address] [address] [place] [address] Cough (Primary Dx); Shortness of breath; Sore [...] be available within 24 to 48 hrs. [facility] Symptomatic? YES [facility] Other (Nasal swab) 06/20/2021 1:40 PM EDT 06/20/2021 5:57 PM EDT us Sun [facility] GENERAL ORDERABLES Enriqueta l Result [facility] [address] [place] [address] [facility] [address] [place] [address], [place] [address] documented in this encounter Visit Diagnoses Diagnosis Cough- Primary Shortness of breath Sore throat Acute pharyngitis documented in this encounter Additional Health Concerns Infection Onset Date Last Indicated Resolved Time CoV-Risk 06/19/2021 06/20/2021 06/29/2021 1:23 AM EDT documented as of this encounter Care Teams Sales And Support Center Agent Relationship Specialty Start Date End Date Pcp, Unknown PCP - General 03/01/21 documented as of this encounter Additional Source Comments The information contained in this document represents components of the legal health record. It is not the complete legal health record.[facility]
--- OUTSIDE RECORDS SUMMARY | 2025-09-20 08:42 | XMS_ITS | Data Portability ---
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 MODERATE MUST MEET 2 OUT OF 3 ELEMENTS: PROBLEMS, DATA OR RISK ELEMENT 1: PROBLEMS ADDRESSED OR OR OR 1 ACUTE ILLNESS W/SYMPTOMS OR ELEMENT 2: DATA MUST MEET 1 OF 3 CATEGORIES CATEGORY 1: REVIEW OF PRIOR EXTERNAL NOTES, REVIEW OF RESULTS, ORDERING OF EACH TEST, ASSESSMENT REQUIRING INDEPENDENT HISTORIAN OR CATEGORY 2: OR CATEGORY 3: ELEMENT 3: RISK RISK OF COMPLICATIONS AND/OR MORBIDITY OR MORTALITY OF PATIENT MANAGEMENT PROVIDER MUST THOROUGHLY DOCUMENT EACH ELEMENT THAT IS COVERED Not available 01/31/2021 13:54:15 06/19/2021 06/19/2021 Patient agreed and verbally consents to this audio and video Telehealth appt via a secure platform [email or web address] Not available 06/19/2021 14:13:35 11/06/2021 11/06/2021 Patient agreed and verbally consents to this audio and video Telehealth appt via a secure platform [email or web address] Not available 11/06/2021 13:55:35 06/29/2022 06/29/2022 Patient agreed and verbally consents to this audio and video Telehealth appt via a secure platform [email or web address] Not available 06/29/2022 10:55:47 Plan of Treatment Reminders Order Date Submit Date Provider Last Modified By Organization Details Last Modified Time Details Appointments None recorded. Lab None recorded. Referral gynecologis t referral 2019 020 [facility], [address] [place] [address], [address], 0 08:21:30 Procedures None recorded. Surgeries None recorded. Imaging None recorded. Medication Orders amoxicillin 500 mg-potassiu m clavulanate 125 mg tablet 2021 022 [facility], [address] [place], [address], 2 15:22:08 prednisone 10 mg tablet 2021 022 [facility], [address] [place], [address], 3 09:21:04 Medrol (Joe) 4 mg tablets in a dose pack 2020 021 [facility], [address] [place], [address], 2 15:22:29 Zithromax Z-Joe 250 mg tablet 2020 021 [facility], [address] [place], [address], 2 15:21:58 albuterol sulfate HFA 90 mcg/actuati on aerosol inhaler [address] [address] [place], [address], 1 14:05:02 Patient TargetsNo targets recorded. 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 [facility] (Radiology) [address], [place], [address], 06/23/2021 09:07:03 Result Notes None recorded. Problems Name Problem SNOMED Code Status Onset Date Resolution Date Notes Provider Name and Address Organization Details Recorded Time Gastroeso phageal reflux disease 691671102 Active 2017 Not Available [facility] 2 09:45:17 Eustachia n tube disorder 27140978 Active 2017 Left sided hearing loss Not Available [facility] 2 09:45:17 Exercise- induced asthma 66607226 Active 2017 Not Available [facility] 2 09:45:17 Tension-t ype headache 038959435 Active 2017 Not Available [facility] 2 09:45:17 Anxiety 45670339 Active 2017 Not Available [facility] 2 09:45:17 Depressiv e disorder 30079680 Active 2019 Not Available [facility] 2 09:45:17 Acute pharyngit is 030583507 Active 2021 OLAYINKA MORENO [address] [place] [address], [phone], [facility] 2 10:48:50 Problem Notes None recorded. Medical Equipment None Reported. Allergies Allergen ID Allergen Name Allergen Category Reaction Reaction Severity Criticality Documentation Date Start Date Code Code System Note Provider Name and Address Organization Details Recorded Time 1695 ibuprofen medicatio n nausea Not available Not available 04/22/2018 5640 [facility] [place] villarreal [facility] 8 13:56:37 Medications Name Sig Start Date Stop Date Status Note LastModified by Organization Details LastModified Time cyclobenzap rine 10 mg tablet TAKE 1 TABLET(S) 3 TIMES A DAY BY ORAL ROUTE FOR 15 DAYS. 01/31 completed Not Available Not Available Not Available amoxicillin 500 mg capsule TAKE 1 CAPSULE BY MOUTH EVERY 6 HOURS UNTIL FINISHED active Not Available Not Available No t Available bupropion HCl SR 150 mg tablet,12 hr sustained-r elease Take 1 tablet twice a day by oral route for 90 days. 02/17 completed Not Available Not Available Not Available prednisone 10 mg tablet TAKE 5 TABS DAILY X 3DAYS, 4 TABS X 3 DAYS, 3 TABS X 3DAYS, 2 TABS X 3DAYS AND 1 TAB X 3 DAYS 04/08 completed Not Available Not Available Not Available citalopram 40 mg tablet 02/17 completed Not Available Not Available Not Available triazolam 0.25 mg tablet 09/26 completed Not Available Not Available Not Available azithromyci n 250 mg tablet TAKE 2 TABLETS BY MOUTH TODAY, THEN TAKE 1 TABLET DAILY FOR 4 DAYS 07/10 completed Not Available Not Available Not Available ibuprofen 800 mg tablet TAKE 1 TABLET BY MOUTH EVERY 8 HOURS NEEDED FOR PAIN active Not Available Not Available No t Available citalopram 10 mg tablet Take 1 tablet every day by oral route for 30 days. 06/13 completed Not Available Not Available Not Available ondansetron HCl 8 mg tablet Take 1 tablet twice a day by oral route for 14 days. active Not Available Not Available No t Available sucralfate 1 gram tablet Take 1 tablet 4 times a day by oral route for 30 days. 01/31 completed Not Available Not Available Not Available metronidazo le 250 mg tablet 09/26 completed Not Available Not Available Not Available sumatriptan 50 mg tablet take 1 tablet by onset of migraine, may repeat once if needed 02/17 completed Not Available Not Available Not Available penicillin V potassium 500 mg tablet Take 1 tablet every 8 hours by oral route. 05/28 completed Not Available Not Available Not Available acetaminoph en 300 mg-codeine 15 mg tablet TAKE 1 TABLET BY MOUTH EVERY 4 TO 6 HOURS NEEDED FOR PAIN active Not Available Not Available No t Available acetaminoph en 300 mg-codeine 30 mg tablet 09/26 completed Not Available Not Available Not Available prochlorper azine maleate 10 mg tablet 05/28 completed Not Available Not Available Not Available sulfamethox azole 800 mg-trimetho prim 160 mg tablet Take 1 tablet every 12 hours by oral route for 10 days. 04/23 completed Not Available Not Available Not Available omeprazole 40 mg capsule,del ayed release TAKE 1 CAPSULE BY MOUTH TWICE A DAY 2021 active Not Available Not Available Not Avai lable tramadol 50 mg tablet TAKE 1 TABLET(S) EVERY 6 HOURS BY ORAL ROUTE FOR 15 DAYS. active Not Available Not Available No t Available bupropion HCl SR 100 mg tablet,12 hr sustained-r elease TAKE 1 TABLET BY MOUTH EVERY DAY 07/10 completed Not Available Not Available Not Available propranolol 40 mg tablet Take 1 tablet every day by oral route for 30 days. 06/13 completed Not Available Not Available Not Available citalopram 20 mg tablet Take 1 tablet every day by oral route for 30 days. 02/17 completed Not Available Not Available Not Available lorazepam 0.5 mg tablet Take 1 tablet every 8 hours by oral route as needed for 7 days. active Not Available Not Available No t Available ciprofloxac in 0.3 % eye drops INSTILL 3 DROP(S) TWICE A DAY FOR 7 DAYS. 09/26 completed Not Available Not Available Not Available amitriptyli ne 10 mg tablet Take by oral route for 30 days. 05/28 completed Not Available Not Available Not Available propranolol ER 80 mg capsule,24 hr,extended release 03/21 completed Not Available Not Available Not Available methylpredn isolone 4 mg tablets in a dose pack TAKE 6 TABLETS ON DAY 1 DIRECTED ON PACKAGE AND DECREASE BY 1 TAB EACH DAY FOR A TOTAL OF 6 DAYS 07/10 completed Not Available Not Available Not Available albuterol sulfate HFA 90 mcg/actuati on aerosol inhaler INHALE 2 PUFFS INTO THE LUNGS EVERY 4 HOURS FOR 30 DAYS active Not Available Not Available No t Available ketoconazol e 2 % topical cream APPLY TO THE AFFECTED AREA TOPICALLY TWICE A DAY active Not Available Not Available No t Available Ambien 5 mg tablet Take 1 tablet by oral route at bedtime for 30 days. 05/28 completed Not Available Not Available Not Available amoxicillin 500 mg-potassiu m clavulanate 125 mg tablet TAKE 1 TABLET BY MOUTH EVERY 12 HOURS FOR 10 DAYS 07/10 completed Not Available Not Available Not Available tobramycin 0.3 %-dexametha sone 0.1 % eye drops,suspe nsion 09/26 completed Not Available Not Available Not Available Missy 28 0.15 mg-0.03 mg tablet 03/21 completed Not Available Not Available Not Available duloxetine 30 mg capsule,del ayed release TAKE 1 CAPSULE BY MOUTH EVERY DAY 07/10 completed Not Available Not Available Not Available duloxetine 60 mg capsule,del ayed release TAKE 1 CAPSULE BY MOUTH EVERY DAY NEEDS APPT FOR FURTHER REFILLS. CALL OFFICE 2023 active Not Available Not Available Not Marcello Reynolds [facility] spacer USE DIRECTED. 04/08 completed Not Available Not Available Not Available duloxetine 40 mg capsule,del ayed release Take 2 capsules every day by oral route for 30 days. 05/20 completed Not Available Not Available Not Available Vitals None Recorded Social History Question Answer Notes LastModified by Organizat ion Details LastModified Time Tobacco Smoking Status Never Smoker Not Available [facility] 08/30/2020 03:36:23 What Was The Date Of Your Most Recent Tobacco Screening? 02/17/2019 [email or web address] Information not available 11/06/2021 Sex: Unknown Functional Status None recorded. Mental Status None recorded. Family History Relationship Description Onset Age of this Age Resolved Age Notes LastModified by Organization Details LastModified Time Sister Asthma [email or web address] Not available 1 12/03/2021 12:03:37 Sister Anxiety [email or web address] Not available 10/02/2022 12:04:40 Sister Depressive disorder [email or web address] Not available 2021 12:05:00 Father Hypertensive disorder jvanasse Not available 2021 12:04:11 Father Depressive disorder jvanasse Not available 2021 12:05:00 Father Hypercholest erolemia jvanasse Not available 2021 12:05:22 Paternal Grandfather Hypertensive disorder jvanasse Not available 2021 12:04:11 Paternal Grandfather Heart disease jvanasse Not available 2021 12:04:24 Paternal Grandfather Diabetes mellitus jvanasse Not available 2021 12:06:34 Paternal Grandmother Hypertensive disorder jvanasse Not available 2021 12:04:11 Paternal Grandmother Depressive disorder jvanasse Not available 2021 12:05:00 Paternal Grandmother Hypercholest erolemia jvanasse Not available 2021 12:05:22 Paternal Grandmother Diabetes mellitus jvanasse Not available 2021 12:06:34 Maternal Grandfather Heart disease jvanasse Not available 2021 12:04:24 Mother Myocardial infarction [email or web address] Not available 10/02 12:04:33 Mother Depressive disorder jvanasse Not available 2021 12:05:00 Maternal Grandmother Dementia jvanasse Not available 03/2022 12:05:29 Maternal Aunt Intracranial aneurysm jvanasse Not available 2021 12:05:45 Maternal Uncle Heart disease 2 uncles jvanasse Not available 10/02/2022 12:06:15 Medical History No medical history recorded. Gynecological HistoryNo gynecological history recorded. Obstetrics History GPAL:G 0 P 0 0 0 0 Immunizations Vaccine Type Date Status Note Provider Nam e and Address Organization Details Recorded Time COVID-19, mRNA, LNP-S, PF, 30 mcg/0.3 mL dose 2 completed Mathieu King, DO [address] [place] [address], [phone], [facility] 02/03/2022 15:11:30 Influenza, split virus, quadrivalent, preservative 9 completed Not Available [facility] 11/14/2019 02:46:30 Influenza, split virus, quadrivalent, preservative 8 completed Hannah villarreal [facility] 11/06/2021 08:21:55 COVID-19, mRNA, LNP-S, PF, 30 mcg/0.3 mL dose 1 regine villarreal [facility] 11/06/2021 08:21:55 [facility]dap 8 completed [facility] 11:31:41 Past Encounters Encounter ID Performer Location Encounter Start Date Encounter Closed Date Diagnosis/Indication Diagnosis SNOMED-CT Code Diagnosis ICD10 Code Diagnosis IMO Codes Diagnosis Note [id number] Mathieu CurtsiTisha Christine [facility] [address] [facility],[place] [address] 03/21/2018 09:44:54 03/21/2018 10:18:02 Bee sting 802948554 T63.91XA Cellulitis 969359467 L03 .90 f/u if redness worsens, streaking, fever otherwise if needed [id number] Mathieu CurtisTisha King [facility] [address] [facility],[place] [address] 04/23/2018 09:59:04 04/23/2018 11:33:26 Initial insomnia 35430966 G47.00 sleep hygiene risks/bene fits discussed [id number] Mathieu King [facility] [address] [facility] [address] [place] [facility] [address] 05/09/2018 09:50:10 05/13/2018 08:14:10 Streptococcal infectious disease 01023947 A49.1 [id number] Mathieu CurtisTisha King [facility] [address],[place] [address] 05/28/2018 10:00:03 05/28/2018 14:14:21 Migraine 22093852 G43.909 hold propranolo l Depressive disorder 3548 9007 F32.9 after long talk will start trial of citalopram [id number] Mathieu King [facility] [address] [facility] [address] 06/13/2018 10:37:17 06/13/2018 12:08:27 Anxiety 58613596 F41.9 increase to 20mg [id number] Mathieu King [facility] [address] [facility],[place] [address] 07/01/2018 15:00:57 07/01/2018 16:53:27 Anxiety 74091306 F41.9 did well with current meds will cont at present dose Tension-type headache 39 5111885 G44.209 not too bad still occur overall a few times a month but clearly better than in past Insomnia 481499752 G47.0 0 cont melatonin [place] [id number] Mathieu King [facility] [address] [facility] [address] [address] 09/15/2018 15:10:01 09/15/2018 15:59:54 Renewal of prescription 627723089 Z76.0 Tension-type headache 39 5075963 G44.209 not too bad still occur overall a few times a month but clearly better than in past Anxiety 19514983 F41.9 did well with current meds but now in trouble again will see what increasing the dose does will increase the citalopram to 40mg then rechk in a few weeks [id number] Mathieu King [facility] [address] [address] 02/17/2019 08:55:47 02/17/2019 09:39:34 Anxiety 51991125 F41.9 did well with current meds but now in trouble again will see what increasing the dose does will stop the citalopram and acid changer to duloxetine 60mg [id number] Mathieu King [facility] [address] [place] [address],[place] [address] 08/21/2019 13:16:42 08/21/2019 13:46:50 Administration of influenza vaccine 43390657 Z23 [id number] Mathieu King [facility] [address],[place] [address] 01/15/2020 10:16:49 01/15/2020 10:40:11 Depressive disorder 89773611 F32.9 will try to increase the dose of her duloxetine and see if this helps as she has tried numerous other meds without improvemen t Anxiety 81726058 F41.9 did well with current meds but now in trouble again will see what increasing the dose does duloxetine 60mg [id number] Mathieu King [facility] [address] [facility] [address] [address] 05/20/2020 10:34:18 05/20/2020 11:18:29 Dysmenorrhea 477280307 N94.6 the patient reports period related symptoms and worsening periods discussed control options, may want to try paraguard sent to artificial leather calender operator referral to discuss these options in more detail Anxiety 67096710 F41.9 stable, no acute episodes Cramping pain 282837534 R52 the patient reports increased cramping during her period will have her eval by artificial leather calender operator [id number] Mathieu King [facility] [address],[place] [address] 01/31/2021 08:33:56 01/31/2021 14:33:20 Allergic rhinitis 32582253 J30.9 just using nasal saline will have her try flonase otc and will call in 1 week with update Headache 88374252 R51.9 already had a rapid test for covid on saturday as above may be related to the allergies and we will have her rechk covid this week [id number] Mathieu King [facility] [address],[place] [address] 06/19/2021 09:45:43 06/19/2021 15:33:23 Acute pharyngitis 601210233 J02.9 fu with treatment for symptomsan d COVID testing at [facility] Acute laryngitis 8778353 J04.0 will report if no improvemen t or worsening of symptomspr ovided with work note until negative COVID result [id number] Mathieu King [facility] [address] [facility],[place] [address] 11/06/2021 08:21:42 11/06/2021 16:10:27 Suspected COVID-19 334940089 Z20.822 waiting on lab results Exposure t o SARS-CoV-2 873556975 Z20.822 waiting on lab results Headache 45873230 R51.9 continue APAP for treatment Nasal congestion 8110614 0 R09.81 continues, will monitor symptoms can take OTC nasal congestant for relief Chill 18140994 R68.83 resolved Nausea and vomiting 1693 1999 R11.2 improving with medication [id number] DO Ind[facility] [address] [address] [address] 06/29/2022 09:14:16 07/03/2022 11:10:53 Acute pharyngitis 701508291 J02.0 stat on dual therapy and fu if no improvemen t Health Concerns Section Related Observation LastModified by Organization Detai ls LastModified Time None Recorded Concern Status LastModified by Organization Details LastModified Time None Recorded Advance Directives Directive None Recorded Payers Insurance Date Sequence Insurance Name Policy Number Policy Khalil Covered Member ID Khalil Member ID Guarantor Name 07/10/2021 1 [facility] (INDEMNITY) [id number] Deepa Thomas [id number] Zoe Thomas 11/03/2021 2 [facility] (PPO) [id number] Zoe Thomas [id number] Zoe Thomas 06/29/2022 1 [employer] [id number] Zoe Thomas [id number] Zoe Thomas 06/29/2022 1 [facility] [id number] Zoe Thomas [id number] Zoe Thomas Notes Date Note Type Note Provider Name a tx Address Organization Details Recorded Time 0 text/html ROS as noted in the HPI c/o patient would like to discuss control the patient reports for the last year she has been dealing with increased length of her period, increased pelvic pain, increased bleeding around her period no spotting, no increased frequency of her period, no pain with intercourse the patient states she was on a control before, for a long time but it made her khalil, caused her to gain weight and overall reports it did not help has since stopped taking it states that she has a bad reaction to hormones as this has happened before and no control seems to work well with her discussed with patient the paraguard IUD which is copper based and does not use hormones which may work well for her patient does not have a forging engineer so we discussed setting her up with one and what she should discuss with them patient agrees to this plan no sob, no fever, no cough, no abdominal pain, no chest OLAYINKA Gregg [address] [place], [address], [facility] 05/20/2020 11:02:03 1 text/html ROS as noted in the HPI patient is evaluated via tele/video assessment per patient consent during current pandemic pt relates has been high with her bp as of late today 122 /92 which is unusual for her and hasnt been that high since [employer] and has been noted to be having headaches and nosebleeds relates has been taking a lot of allergy symptoms has had numerous bouts of epistaxis over the last few weeks and this ins despite using nasal saline has been having a chronic daily headache for the 10 days headache is across the forehead but also on the top and on the sides no neck pain but she is not stressed and is doing ok overall note she has been direct exposure to someone with covid 19 j could this headache be covid 19 Mathieu King, [address] [place], [address], [facility] 01/31/2021 13:55:04 1 text/html ROS as noted in the HPI c/o sore throat x 3 days the patient reports that she was on vacation at [facility] with the stomach bug on which improved after 48 hours and then started with a sore throat after the fact no sick contacts but was surrounded by large groups of people during vacation and was recently at a baseball game the patient reports sore throat, sob, dry cough with loss of voice and hoarsenessdoes report some mild ear pain with some mild hearing impairmentdenies fever, chills, loss of taste or smell OLAYINKA MORENO [address] [place], [address], [facility] 06/19/2021 14:14:54 2 text/html ROS as noted in the HPI c/o needs work note tele-med phone callpatients consents phone call the patient reports symptoms from 10/26/21 to 11/02/21the patient reports chills, diarrhea, body aches, nausea, vomitting, abdominal pain, nasal congestion, and headaches still currently having nasal congestion and headachewill fu with work note for patient as her COVID test was not done due to lab error and was called back to redo test, will not be processing it until tomorrow will fu with work note and return to work note when results are available OLAYINKA MORENO [address] [place], [address], [facility] 11/06/2021 13:58:09 2 text/html ROS as noted in the HPI c/o sore throat, large tonsils, white spots at the back of the throat tele-med phone callpatient consents on phone call the patient has a hx of recurrent strep throathas been hospitalized with it before due to how swollen it has beenwill start on dual therapy of augmentin for 10 days and pred taper will fu if no improvement and if symptoms worsencan continue mucinex and APAP for pain OLAYINKA MORENO [address] [facility], [place], [address], [facility] 06/29/2022 10:59:28 OBGyn Episode No OBEpisode recorded.
--- OUTSIDE RECORDS SUMMARY | 2025-09-20 08:42 | XMS_ITS | Clinical Summary ---
Author Organization [facility] Address [address] [place] [id number] Phone Care Team Providers Care Manager Operations Research Name Role Phone Pcp, Unknown Primary Care [...] SMEAR 2016 Adult Td,Tdap Booster 05/31/2018 05/31/2008 INFLUENZA VACCINE (#1) 2025 9, 08/29/2018, 08/04/2013, Additional history exists COVID-19 VACCINE ( season) 2025 03/30/2021, 03/04/2021 HIB VACCINES Completed 10/16/1996, 12/27, [...] topic Medical Devices Not on file Insurance [employer] [facility] [employer] [facility] [employer] [address] [place] [address] [facility] [employer] [place] [address] [facility] [employer] [facility] CHOICE [facility] CHOICE Care Teams Manager Operations Research Relationship Specialty Start Date End Date Pcp, Unknown PCP - General 03/01/21 Additional Source Comments The information contained in this document represents components of the legal health record. It is not the complete legal health record.[facility]
--- OUTSIDE RECORDS SUMMARY | 2025-09-20 08:42 | XMS_ITS | Data Portability ---
Author Organization [place] - [facility],, LAWANDA RODRIGUEZ MD Address [address] [address] Care Team Providers Care Command Center Officer Name Role Phone BRETT PHILLIPSIE Primary Care Provider Assessment No assessment recorded. Plan of Treatment Reminders Order Date Submit Date Provider Last Modified By Organization Details Last Modified Time Details Appointments None recorded. Lab pap test, thinprep, cervical 2023 024 [employer] (Centralized Electronic Ordering - All Locations), Patient Can Go To The Location Of Their Choice, [facility] 4 07:35:20 chlamydia sp, culture, unspecifie d specimen 2023 024 [employer] (Centralized Electronic Ordering - All Locations), Patient Can Go To The Location Of Their Choice, [facility] 4 07:35:20 NG DNA, PCR, genital 2023 024 [employer] (Centralized Electronic Ordering - All Locations), Patient Can Go To The Location Of Their Choice, [facility] 4 07:35:20 Referral None recorded. Procedures None recorded. Surgeries None recorded. Imaging None recorded. Medication Orders Lo Loestrin Fe 1 mg-10 mcg (24)/10 mcg (2) tablet 2023 024 [email or web address] [id number], [address] [facility], [place], [address], 4 09:54:30 Patient TargetsNo targets recorded. Patient Instructions Encounter Date Encounter Id Patient Instructions Last Modified By Organization Details Last Modified Time 11/29/2023 [id number] learning about healthy weight Not available 11/29/2023 09:15:52 heavy menstrual periods: care instructions Not available 11/29/2023 09:44:28 anemia: care instructions Not available 11/29/2023 09:44:28 She is here as a new patient for annual, sexually active, nulligravid, using condoms. She was recently diagnosed with significant anemia, almost bad enough to get a blood transfusion, she has menorrhagia, has very heavy bleeding for 5 days a cycle, changes a super tampon and maxipad hourly when her flow is heavy. She is taking daily iron now. She had problems with the 20 mcg pill in the past, it caused sever mood instability and weight gain, I couldn't tolerate it. 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 Thyroid testing was fine. She appears to be doing well. she needs to get this life threatening bleeding under control. she understands. Will start on the 10 mcg pill to see if this is better tolerated than the 20 mcg pill was. If tolerated well she will stay on this. If not tolerated then she may consider a progestin IUD. As she has had mood instability in the past it may be aggravated by depo provera so that is not the next choice due to this concern. Monthly self breast exam was taught, and stressed, and is advised to call if she discovers any new mass in the breast. We discussed the first day start process for the OCP, that the pill will not be effective for the first month of use, and the interaction with antibiotics. We discussed the need to use a condom during antibiotic use and also for a minimum of three weeks following the use of antibiotics. We discused interactions with some herbal and OTC meds, such as Saint Christopher's Wort. Possible side effects, and the stated risk of one in 10,000 to develop a blood clot/ DVT/PE were also discussed. All questions answered, rx to be called in to pharmacy. Not available 11/29/2023 09:46:16 02/25/2024 [id number] This visit is a phone telehealth visit. The patient consented to the visit by phone. The patient was at home at the time of the call and the provider and patient were the only people on the line. I was at [address], [address], [place], [place], at the time of the call. She has been having irregular vaginal bleeding and pelvic pain for a few days. She was new to our practice 2 months ago, is sexually active, with condoms. We had started her on lo loestrin on 11/29/23. She notes that she had started the lo loestrin, on 11/30/23, she did not like them so she stopped after the 28 day pill pack was finished. 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 Menses began 01/03/24, it was normal in timing and duration of 7 days, and flow. Her ACUTE CARE NURSE began on 01/31/24, then she started another menses this past 02/21/24, and she is having an unusual amount to cramping pain which began on 02/19 and is ongoing. She stayed home from work today due to the midline cramping pain. Note from 11/29/23: She is here as a new patient for annual, sexually active, nulligravid, using condoms. She was recently diagnosed with significant anemia, almost bad enough to get a blood transfusion, she has menorrhagia, has very heavy bleeding for 5 days a cycle, changes a super tampon and maxipad hourly when her flow is heavy. She is taking daily iron now. She had problems with the 20 mcg pill in the past, it caused sever mood instability and weight gain, I couldn't tolerate it. 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 Thyroid testing was fine. She appears to be doing well. she needs to get this life threatening bleeding under control. she understands. Will start on the 10 mcg pill to see if this is better tolerated than the 20 mcg pill was. If tolerated well she will stay on this. If not tolerated then she may consider a progestin IUD. As she has had mood instability in the past it may be aggravated by depo provera so that is not the next choice due to this concern. ____ We discussed that she is at risk for having a tubal , which can be life threatening and she is advised to go to the emergency department now. She would prefer to do a home test first. She is advised that even if the urine test is negative she could still have an ectopic , or miscarriage, and with her symptoms I would advise she go to the ED now. She is already borderline anemic so has little cushion for blood loss. She states she has two family members who are nurses and they have talked about ectopics in the past, she understands. She is at least going to do a home test and then call us with the results, but is unsure if she will go to the ED unless the pain worsens She feels it is not too bad right now. She ia again counselled that this could be life threatening and I strongly advise she go to the ED. All questions answered. The patient was agreeable to this plan. She is aware of the limitations caused by the covid restrictions, and this phone call. Face to face discussion 21 minutes [email or web address] Not available 02/25/2024 11:33:31 02/28/2024 [id number] heavy menstrual periods: care instructions Not available 02/28/2024 11:41:48 She is here for follow up after ED visit for irregular vaginal bleeding and pain in pelvis. She had a sonogram of the pelvis that was normal by her report, and blood work negative for , and It showed my anemia was gone. She notes that she has a past history of depression, anxiety, ad suicidal ideation, and that the OCP made this worse, even the 10 mcg OCP. She desires fertility in 1 to 2 years. She was not having pelvic pain prior to this past cycle. ____ She has been having irregular vaginal bleeding and pelvic pain for a few days. She was new to our practice 2 months ago, is sexually active, with condoms. We had started her on lo loestrin on 11/29/23. She notes that she had started the lo loestrin, on 11/30/23, she did not like them so she stopped after the 28 day pill pack was finished. 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 Menses began 01/03/24, it was normal in timing and duration of 7 days, and flow. Her ACUTE CARE NURSE began on 01/31/24, then she started another menses this past 02/21/24, and she is having an unusual amount to cramping pain which began on 02/19 and is ongoing. She stayed home from work today due to the midline cramping pain. She is here as a new patient for annual, sexually active, nulligravid, using condoms. She was recently diagnosed with significant anemia, almost bad enough to get a blood transfusion, she has menorrhagia, has very heavy bleeding for 5 days a cycle, changes a super tampon and maxipad hourly when her flow is heavy. She is taking daily iron now. She had problems with the 20 mcg pill in the past, it caused sever mood instability and weight gain, I couldn't tolerate it. 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 Thyroid testing was fine. She appears to be doing well. she needs to get this life threatening bleeding under control. she understands. Will start on the 10 mcg pill to see if this is better tolerated than the 20 mcg pill was. If tolerated well she will stay on this. If not tolerated then she may consider a progestin IUD. As she has had mood instability in the past it may be aggravated by depo provera so that is not the next choice due to this concern. At this time she is not having pelvic pain or abnormal bleeding. Her pelvic exam is unremarkable. she will get copies of her recent labs and sonogram sent to me so that I can review them. We discussed the possibility of a progestin IUD, she declines this at present. She feels she is no longer anemic. It would be unexpected for anemia almost needing a blood transfusion to spontaneously resolve in 2 months, however we can review the records for her. Going forward she declines any hormonal therapy at this time , she wants to wait and see how this next cycle is. She is offered referral to go to a track superintendent surgeon for possible laparoscopy to look into whether this may be endometriosis, her sister has endometriosis, however at present she declines. Not available 02/28/2024 11:41:32 Reason for Referral None Reported. Results Created Date Observation Date Name Description Value Unit Range Abnormal Flag Note LastModifiedBy Organization Detail LastModifiedTime 11/29/19 24 12/02/[address]/GC AMPLI FIED PROBE C.trach.amp probe thin prep (neg) NEGAT CHAKA No Chlam ydia Trach omati s RNA detec teresa in this patie nt's sampl e (REFE RENCE RANGE /NORM AL VALUE : NOT DETEC TERESA) Note: This test uses trans cript ion- media teresa ampli ficat ion metho d to detec t rRNA from C. Trach omati s Not Available [facility] (Centralized Electronic Ordering - All Locations) Patient Can Go To The Location Of Their Choice, [id number] 12/02/2023 13:20:56 11/29/19 24 12/02/[address]/GC AMPLI FIED PROBE GC amplified probe thin prep (neg) NEGAT CHAKA No Neiss eria Gonor rhoea e RNA detec teresa in this patie nt's sampl e (REFE RENCE RANGE /NORM AL VALUE : NOT DETEC TERESA) NOTE: This test uses trans cript ion-m ediat ed ampli ficat ion metho d to detec t rRNA from N.Gil orrho eae. A negat chaka resul t does not precl ude infec tion. In the case of a negat chaka urine resul t, testi ng of an endoc ervic al(fe male) or ureth ral (male ) speci men is recom tex d if there is high clini fco suspi cion of infec tion. Due to very high sensi tivit y of Nucle ic Acid Ampli ficat ion Test, false posit chaka resul ts may occur . There fore, speci men handl ing is extre canelo impor tant. In patie nts in whom the disea se is unlik donnell, addit ional sampl e for testi ng shoul d be consi dered after an initi al posit chaka resul t. The perfo rmanc e nubia cteri stics of this test have not been evalu ated in child rachele. The Aptim a Combo 2 assay is not inten ded for the evalu ation of suspe cted sexua l abuse or for other medic o-leg al indic ation s. The order ing provi azra shoul d asses s if the patie nt had conse nsual sex witho ut risk of sexua l abuse . Consu lt [facility] if neede d. Conta ct phone numbe r [phone]. Thera peuti c failu re or succe ss canno t be deter mined with the Aptim a Combo 2 assay since nucle ic acid may persi st follo wing appro priat e antim icrob ial thera py. The Cente rs for Disea se Contr ol and Preve ntion ([facility]) recom mends confi rmato ry retes ting using cultu re or a diffe rent nucle ic acid ampli ficat ion test when posit chaka resul ts occur , if indic ated. Not Available [facility] (Centralized Electronic Ordering - All Locations) Patient Can Go To The Location Of Their Choice, [id number] 12/02/2023 13:20:56 11/29/19 24 11/29/2023 [facility] CYTOL OGY results Rohini woodard Name: DOUGLAS ARROYO SE : 1994 (Age: 28) Lab Acces dejuan #: [id number] Colle ction Date: Acces dejuan Date: 024 Sign Out Date: 024 Tissu e Sourc e: 1: THINP REP WATER REGISTRAR PAP TEST, CERVI FCO: Final Diagn osis: NEGAT CHAKA FOR INTRA EPITH ELIAL LESIO N OR MALIG RAFAELA . Satis facto ry for evalu ation . Endoc ervic al/tr ansfo rmati on zone prese nt. Clini fco Histo ry: Date of Last Menst rual Perio d: 11/14 Menst rual Histo ry: not avail able Contr acept chaka Histo ry: not avail able Ancil darrion Testi ng: HPV (ASCU S) Chlam ydia/ GC Case image d by the Thin rep Fátima Hunt m with flores cox or deborah argueta Perfo rmed at [facility] ate Refer ence Labor [facility] Cytol ogy, [address] [place] [facility] Clini fco Histo ry (othe r): Z01.4 19, ROUTI NE SCREE N Phone #: [phone], On-Ca ll Patho logis t: [id number] Not Available [facility] (Centralized Electronic Ordering - All Locations) Patient Can Go To The Location Of Their Choice, [id number] 12/05/2023 13:50:25 Result Notes None recorded. Problems Name Problem SNOMED Code Status Onset Date Resolution Date Notes Provider Name and Address Organization Details Recorded Time Menorrhagia 826142632 Active Lawanda Rodriguez MD [address], [place], [address], [place] - [facility], 4 09:44:11 Anemia 021800746 Active Lawanda Rodriguez MD [address], [place], [address], [place] - [facility], 4 09:44:19 Problem Notes None recorded. Medical Equipment None Reported. Allergies No known drug allergies Medications Name Sig Start Date Stop Date Status Note LastModified by Organization Details LastModified Time amoxicillin 500 mg capsule TAKE 1 CAPSULE BY MOUTH EVERY 6 HOURS UNTIL FINISHED 11/29 completed Not Available Not Available Not Available ibuprofen 800 mg tablet TAKE 1 TABLET BY MOUTH EVERY 8 HOURS NEEDED FOR PAIN active Not Available Not Available No t Available acetaminoph en 300 mg-codeine 15 mg tablet TAKE 1 TABLET BY MOUTH EVERY 4 TO 6 HOURS NEEDED FOR PAIN 11/29 completed Not Available Not Available Not Available lorazepam 0.5 mg tablet TAKE 1 TABLET BY MOUTH EVERY DAY NEEDED FOR 10 DAYS active Not Available Not Available No t Available ferrous sulfate 325 mg (65 mg iron) tablet,saray yed release TAKE 1 TABLET TWICE A DAY FOR 30 DAYS 02/24 completed Not Available Not Available Not Available ketoconazol e 2 % topical cream APPLY TO THE AFFECTED AREA TOPICALLY TWICE A DAY 02/24 completed Not Available Not Available Not Available methylpheni date ER 18 mg tablet,exte nded release 24 hr TAKE 1 TABLET BY MOUTH EVERY DAY IN THE MORNING 02/27 completed Not Available Not Available Not Available fluoxetine 20 mg capsule TAKE 1 CAPSULE BY MOUTH EVERY DAY FOR 30 DAYS 02/24 completed Not Available Not Available Not Available methylpheni date ER 36 mg tablet,exte nded release 24 hr active Not Available Not Available Not Available duloxetine 30 mg capsule,del ayed release TAKE 1 CAPSULE BY MOUTH EVERY DAY FOR 7 DAYS 02/27 completed Not Available Not Available Not Available duloxetine 60 mg capsule,del ayed release TAKE 1 CAPSULE BY MOUTH EVERY DAY FOR 30 DAYS 02/24 completed Not Available Not Available Not Available ferrous gluconate 324 mg (38 mg iron) tablet TAKE 1 TABLET BY MOUTH EVERY DAY active Not Available Not Available No t Available Lo Loestrin Fe 1 mg-10 mcg (24)/10 mcg (2) tablet Take 1 tablet every day by oral route for 84 days. 02/24 completed Not Available Not Available Not Available Multi Vitamin active Not Available Not Available Not Available desvenlafax ine succinate ER 25 mg tablet,exte nded release 24 hr TAKE 1 TABLET BY MOUTH EVERY DAY FOR 30 DAYS 02/24 completed Not Available Not Available Not Available Vitals Date Recorded Body weight Body mass index (BMI) Body height Heart rate Body temperature Systolic And Diastolic Provider Name and Address Organization Details Last Updated DateTime 4 20849.7 8 g 28.7 kg/m2 168.91 cm 86 /min 97.2 [degF] 125/81 mm[Hg] Catherine Encarnacion in [facility], 4 08:32:37 Date Recorded Body height Provider Name an d Address Organization Details Last Updated DateTime 02/25/2024 168.91 cm juanito anthony in [facility], 02/25/2024 09:53:34 Date Recorded Body height Body mass index (BMI) Body weight Body temperature Heart rate Systolic And Diastolic Provider Name and Address Organization Details Last Updated DateTime 4 168.91 cm 28.8 kg/m2 74897.2 2 g 98 [degF] 87 /min 138/87 mm[Hg] juanito dee [facility] - [facility], 11:01:26 Social History Question Answer Notes LastModified by Organizat ion Details LastModified Time Tobacco Smoking Status Never Smoker Catherine [facility] Michaels in [facility], 11/29/2023 08:36:26 How Many Years Have You Consumed Alcohol? 7 Information not available 11/29/2023 What Is Your Level Of Caffeine Consumption? Moderate Information not available 11/29/2023 In The 14 Days Before Symptom Onset, Have You Had Close Contact With A Laboratory-confirm ed COVID-19 While That Case Was Ill? No Information n ot available 11/29/2023 In The 14 Days Before Symptom Onset, Have You Had Close Contact With A Person Who Is Under Investigation For COVID-19 While That Person Was Ill? No Information not available 11/29/2023 Have You Been To An Area Known To Be High Risk For COVID-19? No Information not available 11/29/2023 Which Illicit Or Recreational Drugs Have You Used? Marijuana Information not available 11/29/2023 What Is The Highest Grade Or Level Of School You Have Completed Or The Highest Degree You Have Received? 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 No Information not available 11/29/2023 How Many Years Have You Used Illicit Or Recreational Drugs? 1 Information not available 11/29/2023 To Which Gender Do You Self-identify? Female Information n ot available 11/29/2023 What Was The Date Of Your Most Recent Tobacco Screening? 02/28/2024 [email or web address] Information not available 02/28/2024 What Is Your Relationship Status? Single Information not available 11/29/2023 Are You Sexually Active? Yes Information not available 11/29/2023 How Many Days In The Past Year Have You Consumed 4 Or More Drinks? 5 Information not available 11/29/2023 Sex: Female Functional Status Question Answer Note LastModified by Organizat ion Details LastModified Time Do you use any illicit or recreational drugs? Yes Information not available 11/29/2023 Do you or have you ever used any other forms of tobacco or nicotine? No Information not available 11/29/2023 What is your level of alcohol consumption? Occasional Information not available 11/29/2023 Are you currently employed? Yes Information not available 11/29/2023 What is your occupation? [employer]. Information not available 11/29/2023 What is your exercise level? Moderate Information not available 11/29/2023 Mental Status Question Answer Note LastModified by Organization D etails LastModified Time Do you feel stressed (tense, restless, nervous, or anxious, or unable to sleep at night)? [id number] Information not available 11/29/2023 Family History Relationship Description Onset Age of this Age Resolved Age Notes LastModified by Organization Details LastModified Time Father Diabetes mellitus [email or web address] Not available 2023 08:34:53 Father Heart disease [email or web address] Not available 2023 08:35:02 Notes:sister has endometrios is Medical History Condition Response Anesthesia complications N High Blood Pressure N Candidate for MyRisk panel N Autoimmune Condition N Thyroid Problems N Kidney or Bladder Problems N GI Problems Y Lung Disease N Depression Y Defects or Inherited Disease N History of Ovarian Cancer N Anemia Y History of Breast Cancer N COREY exposure N BRCA testing in past N Osteopenia N Psychiatric Illness N Anxiety Disorder N Diabetes N Arthritis N Headaches or Migraines Y Infertility N Asthma N History of Cancer N Endometriosis N Hepatitis N Heart Disease N Hypertension N Osteoporosis N Gynecological History Statement/Question Response Flow Heavy Date of LMP 02/21/2024 Frequency of Cycle (Q days) 28 Menses Monthly Y Duration of Flow (days) 5 Current Control Method Condoms Age at First Child 1 Obstetrics History GPAL:G 0 P 0 0 0 0 Past Encounters Encounter ID Performer Location Encounter Start Date Encounter Closed Date Diagnosis/Indication Diagnosis SNOMED-CT Code Diagnosis ICD10 Code Diagnosis IMO Codes Diagnosis Note [id number] MD LAWANDA Clemons MD [address] [facility] [place] [address] 11/29/2023 08:28:43 11/29/2023 14:12:20 Specialized medical examination 24196882 Z01.419 Venereal d isease screening 746215148 Z11.3 Anemia 839253203 D64.9 Menorrhagia 512442056 N9 2.0 [id number] MD LAWANDA Clemons MD [address] [facility] [place] [address] 02/25/2024 09:40:00 02/25/2024 13:31:01 Pain in pelvis 54306264 R10.2 Abnormal u terine bleeding 1982774595 9100 N93.9 [id number] MD LAWANDA Clemons MD [address] [facility] [place] [address] 02/28/2024 10:57:14 02/28/2024 12:07:03 Menorrhagia 758125915 N92.0 Pain in pelvis 00388632 R10.2 Health Concerns Section Related Observation LastModified by Organization Detai ls LastModified Time None Recorded Concern Status LastModified by Organization Details LastModified Time None Recorded Advance Directives Directive None Recorded Payers Insurance Date Sequence Insurance Name Policy Number Policy Khalil Covered Member ID Khalil Member ID Guarantor Name 12/03/2023 1 [facility]) [id number] Douglas Thomas [id number] Douglas Thomas 12/03/2023 1 [facility] [id number] Douglas Thomas [id number] Douglas Thomas 02/27/[address] [place] [address] ([facility]) [id number] Douglas Thomas [id number] Douglas Thomas Notes Date Note Type Note Provider Name and Address Organization Details Recorded Time 11/29/2023 text/html She is here as a new patient for annual, sexually active, nulligravid, using condoms. She was recently diagnosed with significant anemia, almost bad enough to get a blood transfusion, she has menorrhagia, has very heavy bleeding for 5 days a cycle, changes a super tampon and maxipad hourly when her flow is heavy. She is taking daily iron now. She had problems with the 20 mcg pill in the past, it caused sever mood instability and weight gain, I couldn't tolerate it. 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 Lawanda Rodriguez MD [address] [place] [address],[address], [place], [address], [facility], 11/29/2023 09:46:36 02/25/2024 text/html This visit is a phone telehealth visit. The patient consented to the visit by phone.The patient was at home at the time of the call and the provider and patient were the only people on the line.I was at [address] [place] [address], [address], [place], [place], at the time of the call. She has been having irregular vaginal bleeding and pelvic pain for a few days. She was new to our practice 2 months ago, is sexually active, with condoms. We had started her on lo loestrin on 11/29/23. She notes that she had started the lo loestrin, on 11/30/23, she did not like them so she stopped after the 28 day pill pack was finished. 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 Menses began 01/03/24, it was normal in timing and duration of 7 days, and flow. Her ACUTE CARE NURSE began on 01/31/24, then she started another menses this past 02/21/24, and she is having an unusual amount to cramping pain which began on 02/19 and is ongoing. She stayed home from work today due to the midline cramping pain. Note from 11/29/23: She is here as a new patient for annual, sexually active, nulligravid, using condoms.She was recently diagnosed with significant anemia, almost bad enough to get a blood transfusion, she has menorrhagia, has very heavy bleeding for 5 days a cycle, changes a super tampon and maxipad hourly when her flow is heavy. She is taking daily iron now.She had problems with the 20 mcg pill in the past, it caused sever mood instability and weight gain, I couldn't tolerate it. 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 she needs to get this life threatening bleeding under control. she understands. Will start on the 10 mcg pill to see if this is better tolerated than the 20 mcg pill was. If tolerated well she will stay on this. If not tolerated then she may consider a progestin IUD.As she has had mood instability in the past it may be aggravated by depo provera so that is not the next choice due to this concern. Lawanda Rodriguez MD [address], [place], [id number], [place] - [facility], 02/25/2024 11:33:54 02/28/2024 text/html She is here for follow up after ED visit for irregular vaginal bleeding and pain in pelvis. She had a sonogram of the pelvis that was normal by her report, and blood work negative for , and It showed my anemia was gone. She notes that she has a past history of depression, anxiety, ad suicidal ideation, and that the OCP made this worse, even the 10 mcg OCP. She desires fertility in 1 to 2 years. She was not having pelvic pain prior to this past cycle. ____ She has been having irregular vaginal bleeding and pelvic pain for a few days. She was new to our practice 2 months ago, is sexually active, with condoms. 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 Menses began 01/03/24, it was normal in timing and duration of 7 days, and flow. Her ACUTE CARE NURSE began on 01/31/24, then she started another menses this past 02/21/24, and she is having an unusual amount to cramping pain which began on 02/19 and is ongoing.She stayed home from work today due to the midline cramping pain. She is here as a new patient for annual, sexually active, nulligravid, using condoms.She was recently diagnosed with significant anemia, almost bad enough to get a blood transfusion, she has menorrhagia, has very heavy bleeding for 5 days a cycle, changes a super tampon and maxipad hourly when her flow is heavy. She is taking daily iron now.She had problems with the 20 mcg pill in the past, it caused sever mood instability and weight gain, I couldn't tolerate it. 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 she needs to get this life threatening bleeding under control. she understands. Will start on the 10 mcg pill to see if this is better tolerated than the 20 mcg pill was. If tolerated well she will stay on this. If not tolerated then she may consider a progestin IUD.As she has had mood instability in the past it may be aggravated by depo provera so that is not the next choice due to this concern. Lawanda Rodriguez MD [address], [place], [id number], [place] - [facility], 02/28/2024 11:42:23 OBGyn Episode No OBEpisode recorded.
== END 2025-09-20 09:43 | disposition home or self-care (01) ==
LOC: HO.HMCH 08:30
DX: Z00.00 Encounter for general adult medical examination without abnormal findings (principal); F32.A Depression, unspecified; E66.811 Obesity, class 1; Z68.29 Body mass index [BMI] 29.0-29.9, adult; F90.9 Attention-deficit hyperactivity disorder, unspecified type; F41.9 Anxiety disorder, unspecified; K21.9 Gastro-esophageal reflux disease without esophagitis; D50.9 Iron deficiency anemia, unspecified; E78.00 Pure hypercholesterolemia, unspecified; R79.89 Other specified abnormal findings of blood chemistry; L30.9 Dermatitis, unspecified; R20.9 Unspecified disturbances of skin sensation; Z23 Encounter for immunization

== ENCOUNTER → 2025-09-20 08:29 | Outpatient (BNVA) | payer OTHER, SELFPAY | DX: Z00.00 Encounter for general adult medical examination without abnormal findings (principal); R21 Rash and other nonspecific skin eruption; F32.A Depression, unspecified; F90.9 Attention-deficit hyperactivity disorder, unspecified type; F41.9 Anxiety disorder, unspecified; K21.9 Gastro-esophageal reflux disease without esophagitis; D50.9 Iron deficiency anemia, unspecified; E78.00 Pure hypercholesterolemia, unspecified; R79.89 Other specified abnormal findings of blood chemistry; L30.9 Dermatitis, unspecified; R20.9 Unspecified disturbances of skin sensation; E66.811 Obesity, class 1; Z23 Encounter for immunization; Z68.29 Body mass index [BMI] 29.0-29.9, adult | CPT/HCPCS: 90471; 90656; 96127 ==